=== PATIENT | female | born 1990 | race African-American/Black ===

== ENCOUNTER 2016-11-09 11:59 | Emergency (ER) | payer SELFPAY ==
[2016-11-09] MEDS ORDERED: KETOROLAC 60 MG/2 ML VIAL IM ONE (12:46)
== END 2016-11-09 13:20 | disposition home or self-care (01) ==
LOC: ER 11:59 → FASTR 13:20
DX: M77.9 Enthesopathy, unspecified (principal); F17.290 Nicotine dependence, other tobacco product, uncomplicated
CPT/HCPCS: 96372